=== PATIENT | female | born 1930 | race Caucasian/White ===

== ENCOUNTER 2016-09-24 09:20 | Outpatient (CLI) | payer MEDICARE ==
[~2016-09-24] VITALS: Ht 147.3 cm; Wt 39.1 kg
[2016-09-24] MEDS ORDERED: ZOFRAN ODT4 MG/UDTAB PO (10:55)
[2016-09-24] MEDS ORDERED: BLOOD PRESSURE PO (10:58)
[2016-09-24 11:08] VITALS: BP 147/74; Ht 147.3 cm; Wt 39.1 kg
--- NOTE | 2016-09-24 11:41 | NUR ---
20x0.75 INCH TAPIA NEEDLE TO ACCESS LEFT POWER PORT, LAB DRAWN AND CALLED.
[2016-09-24 12:53] LABS: BASOPHILS 0.4 % (0.0-2.0); EOSINOPHILS 0.4 % (0-7); HEMOGLOBIN 9.1 g/dL (12-16); IMMATURE GRANULOCYTES 0.3 % (0-5); LYMPHOCYTES 9.7 % (15-50); MCH 28.2 pg (26.0-34.0); MCHC 30.3 g/dL (31.0-37.0); MCV 92.9 fL (80.0-100.0); MEAN PLATELET VOLUME 9.2 fL (7.4-10.4); MONOCYTES 7.9 % (2-11); NEUTROPHILS 81.3 % (40-80); PLATELET COUNT 394 10x3/uL (130-400); RBC 3.23 10x6/uL (4.00-5.40); WBC 7.2 10x3/uL (4.8-10.8)
[2016-09-24 12:57] LABS: APTT 27.7 SECONDS (22.8-39.4); INR 1.05 (0.85-1.17); PROTIME 13.6 SECONDS (11.6-15.0)
[2016-09-24 13:00] LABS: ALBUMIN 2.2 g/dL (3.4-5.0); ANION GAP 15.4 mmol/L (8-16); BILIRUBIN - TOTAL 0.41 mg/dL (0.2-1.3); CARBON DIOXIDE 24.9 mmol/L (21.0-32.0); CREATININE - SERUM 0.9 mg/dL (0.6-1.3); POTASSIUM - SERUM 4.3 mmol/L (3.5-5.1)
--- NOTE | 2016-09-24 15:21 | NUR ---
1420 SEE POST PROCEDURE VITAL SIGNS CHECKLIST FOR VITAL SIGNS
--- NOTE | 2016-09-24 16:00 | NUR ---
1555 PORT CXR DONE.
== END 2016-09-24 17:30 | disposition home or self-care (01) ==
LOC: D.OPS 09:20 → D.CT 11:00 → D.OPS 17:30
PROVIDERS: Specialist
DX: J90 Pleural effusion, not elsewhere classified (principal)

== ENCOUNTER 2016-10-06 06:05 | Outpatient (CLI) | payer MEDICARE ==
[~2016-10-06] VITALS: Ht 147.3 cm; Wt 39.1 kg
[~2016-10-06 06:05] MED LIST: BLOOD PRESSURE PO; ZOFRAN ODT4 MG/UDTAB PO
[2016-10-06 08:12] VITALS: BP 133/65; Ht 147.3 cm; Wt 39.1 kg
[2016-10-06 08:16] LABS: BASOPHILS 0.8 % (0.0-2.0); HEMATOCRIT 29.8 % (36.0-48.0); HEMOGLOBIN 8.9 g/dL (12-16); LYMPHOCYTES 13.4 % (15-50); MCH 27.3 pg (26.0-34.0); MCHC 29.9 g/dL (31.0-37.0); MCV 91.4 fL (80.0-100.0); MEAN PLATELET VOLUME 8.4 fL (7.4-10.4); MONOCYTES 9.6 % (2-11); NEUTROPHILS 75.2 % (40-80); PLATELET COUNT 327 10x3/uL (130-400); RBC 3.26 10x6/uL (4.00-5.40); RDW 17.5 % (11.5-14.5); WBC 5.1 10x3/uL (4.8-10.8)
[2016-10-06 08:23] LABS: ANION GAP 13.2 mmol/L (8-16); CALCIUM 8.2 mg/dL (8.5-10.1); POTASSIUM - SERUM 4.2 mmol/L (3.5-5.1)
--- NOTE | 2016-10-06 08:35 | NUR ---
0835 IV STARTED TO LEFT PORT WITH 20 GAUGE TAPIA NEEDLE BY ABRAHAM NEGRETE R.N. BLOOD DISCARDED AFTER FLUSH. BLOOD DRAWN & TO LAB FOR TESTING. IV 0.9% NACL 1000ML INFUSING WITHOUT DIFFICULTY. Loida LEVY R.N.
[2016-10-06 08:42] LABS: INR 1.11 (0.85-1.17); PROTIME 14.1 SECONDS (11.6-15.0)
[2016-10-06 08:43] LABS: APTT 71.4 SECONDS (22.8-39.4)
--- NOTE | 2016-10-06 08:52 | NUR ---
0845 LAB VALUE WITH ABNORMALILTIES. EXTENSION 0595 CALLED. Sarah SANON R.N. UNAVALABLE. MESSAGE LEFT TO CALL RELATED TO ABNORMAL LAB. Loida LEVY R.N.
--- NOTE | 2016-10-06 11:15 | NUR ---
1058 SEE POST PROCEDURE VITAL [facility] CHECKLIST FOR VITAL SIGNS
--- NOTE | 2016-10-06 11:16 | NUR ---
1110 ROUNDS BY RADIOLOGY NURSE GIVES INSTRUCTIONS RE ALISONEX
== END 2016-10-06 15:45 | disposition home or self-care (01) ==
LOC: D.OPS 06:05 → D.SP 08:00 → D.OPS 08:00
PROVIDERS: Specialist
DX: C56.9 Malignant neoplasm of unspecified ovary (principal); J91.8 Pleural effusion in other conditions classified elsewhere